=== PATIENT | male | born 1960 | race Caucasian/White ===

== ENCOUNTER → 2020-05-21 | Outpatient (CLI) | payer OTHER ==
[~2020-05-21] MED LIST: ACETAMINOPHEN500 MG PO; ASA81BEC PO; BUPROPION HCL100 MG PO; CELEBREX 200 M200 MG PO; CENTRUM SILVER1 EAC5 PO; FLONASE 0.05%50 MCG NASAL; MELOXICAM7.5 MG PO; NEXIUM40 MG PO; NORCO 5-325 TA1 EACH PO; OXYCODONE HCL5 M1 PO; PREVACID30 MG PO; RESTORIL15 M1 PO; SERTRALINE HCL100 MG PO; VITAMIN B-12500 MC5 PO; VITAMIN D32400 UNIT/ PO; XARELTO10 MG PO
== END ==
LOC: M.LAB
PROVIDERS: ATTEND Orthopaedic Surgery
DX: Z01.812 Encounter for preprocedural laboratory examination (principal); Z20.828 Contact with and (suspected) exposure to other viral communicable diseases; M17.12 Unilateral primary osteoarthritis, left knee

== ENCOUNTER 2020-05-27 09:18 | Observation (INO) | payer OTHER ==
[~2020-05-27] VITALS: Ht 190.5 cm; Wt 131.5 kg
--- NOTE | ~2020-05-27 | OP ---
[address] [address] OPERATIVE REPORT Name: ARNAUD ONEIL Room: [address] Radha#: [id number] Admission: 05/27/20 Attend Phys: Favian Gaytan Discharge: Date of : 60 Report #: [id number] THIS REPORT FOR: //name// cc: James Espinosa MD, Todd MD ~ CC: James Kaplan DICTATED BY: Luis Miguel Rios DO DATE OF SERVICE: 05/27/2020 PREOPERATIVE DIAGNOSIS: Advanced degenerative joint disease, left knee. POSTOPERATIVE DIAGNOSIS: Advanced degenerative joint disease, left knee medial compartment. PROCEDURE PERFORMED: Left medial unicompartmental arthroplasty using the Biomet [place] system with the following components: 1. Large femoral component. 2. Size F tibial tray. 3. A 3 mm ArCom polyethylene. 4. One bag Biomet bone cement. SURGEON: Rosales Ordaz DO SECOND ASSISTANTS: Nae Hollis PA-C; Luis Miguel Rios DO, Tawana Ordaz DO. ANESTHESIA TYPE: General with a peripheral nerve block by Anesthesia. ESTIMATED BLOOD LOSS: 75 mL. SPECIMENS: None. COMPLICATIONS: None. DISPOSITION: Stable to PACU. ANTIBIOTICS: 3 gm IV Ancef preoperatively. TOURNIQUET: 67 minutes at 300 mmHg. INDICATIONS: The patient is a 60-year-old male who we have been following in clinic for quite some time regarding left knee pain. His pain had progressed and was mainly along the medial compartment. He denied pain on the lateral side. Imaging was consistent with medial knee arthritis. His stress view [facility] [address] [place] [address] OPERATIVE REPORT Name: ARNAUD ONEIL Room: [address]#: [id number] Admission: 05/27/20 Attend Phys: Favian Gaytan Discharge: Date of : 60 Report #: [id number] confirmed maintenance of the joint space on stress imaging. He tried and failed extensive conservative measures. He continues to have pain on a daily basis that is limiting his function. Therefore, I recommend he undergo arthroplasty of the left knee. DESCRIPTION OF PROCEDURE: The patient was seen in the preoperative area. Written consent was obtained. The operative site was marked. He was brought back to the operative suite and placed supine on a well-padded operative table. He was given the benefit of general anesthesia. A well-padded pneumatic tourniquet was applied to the left proximal thigh. The leg was placed in the knee aleman from [employer] All pressure points well padded. A surgical timeout was performed. Correct side, site, procedure were verified. everyone present was in agreement. Procedure began with inflation of tourniquet to 300 mmHg after gravity exsanguination. Midline arthrotomy incision was made just from the superior aspect of the patella down medially to the proximal tibia just medial to the tendon. An incision through skin sharply dissected down to the capsule. A new blade was used to create a medial parapatellar arthrotomy. The patella was brought laterally. Some of the fat pad as well as the anterior horn of the medial menisci was incised to allow visualization of the lateral compartment. The medial compartment was completely devoid of cartilage both the anterior portion of the tibia and the weightbearing surface of the femur. Osteophytic lipping was present. The lateral joint showed a pristine cartilage with no significant defects to the tibia or femur. The lateral meniscus was intact. The ACL was intact and functional. We therefore decided to proceed with the unicompartmental arthroplasty. The osteophytes were removed with a small osteotome and rongeur. With the knee in 90 degrees of flexion, the tibial alignment guide was placed and aligned in all planes. The guide was then pinned into place and the proximal tibial resected in standard fashion with the vertical cut followed by the horizontal cut. The excess bone was removed. The tibia was then checked by placing the size F spacer on the tibia and allowing for 3 spacer block at 100 degrees with a good fit. We then turned our attention to the femur. The drill was used to localize the femoral canal followed by the awl. The intramedullary guide was placed. The cutting guide was utilized in standard fashion and followed by placement of the IM link. This was held in the appropriate position along the middle third of the medial femoral condyle and the 2-step drill holes were made into the femur. These were in the appropriate position. The drill guide was removed. We then placed our posterior condylar cutting guide in position, impacted firmly into place. The posterior condyle was resected and the bone was removed. The zero spigot was placed in the femoral drill hole and then drilled to the zero position. Trial reduction was performed with the femoral component and the tibial tray and a size 4 spacer at 100-110 degrees fit well. In 10-20 degrees of flexion, the size 1 spacer fit well. Therefore, a size 3 spigot was obtained and the femur was reamed once again. The femur was thoroughly cleansed of any bony remnants and the remaining small bone around the drill hole was removed. A trial reduction was again performed, gave excellent fit at both 10 and 20 degrees with a size 3 [place] [address] OPERATIVE REPORT Name: ARNAUD ONEIL Room: [address]#: [id number] Admission: 05/27/20 Attend Phys: Favian Gaytan Discharge: Date of : 60 Report #: [id number] Therefore, the final cuts were done. The trial implants were removed. The anti-impingement guide was placed on the femur and the anterior femoral condyle was reamed to remove any bone that would cause impingement on extension. The posterior condyle was checked and had no bone present. The guide was then removed. The tibial tray was placed and held in place with a pin. The toothbrush saw was utilized to prepare the tibial keel. Trial reduction was performed with the trial tray as well as the femur. Excellent motion was achieved and great stability with a size 3 spacer. The trial components were removed. The final components were obtained and placed on the back table. Copious irrigation was carried throughout the incision. The drill holes were made into the tibia and femur with a cement drill. One bag of Biomet bone cement was mixed on the back table. The knee was thoroughly dried and cement placed on the tibia. A small spatula was utilized to pressure the cement into the interstices of the bone. A small amount of cement was placed on the actual implant. Implant was impacted firmly into place. All excess cement was removed. Cement was then placed on the femur with pressurization with a cement gun. Small amount of cement was also placed on the femoral component, which was impacted firmly into place. Excess cement was removed. The size 3 spacer was trialed, again gave full range of motion with good stability. The final 3 was then inserted. Tourniquet was deflated. Hemostasis was achieved. The capsule was injected with orthopedic cocktail. The knee was brought to 90 degrees of flexion. The capsular tissue was closed with #1 Stratafix in a running fashion. Vancomycin powder was introduced throughout the surgical site. Subcutaneous tissue was closed with a 2-0 Monocryl in simple inverted interrupted fashion. The skin was reapproximated utilizing a running 3-0 Stratafix and reinforced with Dermabond skin glue. Sterile Mepilex was applied. The patient was awoken from anesthesia and transferred to PACU in stable condition. No obvious complications. Needle and sponge counts correct x2. Dr. Ordaz was present for all critical aspects of the case. By: [id number] Ordaz DO /nt
[2020-05-27 10:00] VITALS: BP 138/74
[2020-05-27 16:21] VITALS: BP 146/68
[2020-05-27 20:34] VITALS: BP 136/63
[2020-05-28] VITALS: BP 117/54
[2020-05-28 04:00] VITALS: BP 123/56
[2020-05-28 05:28] LABS: HEMATOCRIT 37.5 % (42.0-52.0); HEMOGLOBIN 13.2 gm/dL (14.0-18.0)
[2020-05-28 07:25] VITALS: BP 132/61
[2020-05-28] MEDS ORDERED: TRAMADOL 50 MG50 MG PO (09:47)
[2020-05-28] MEDS ORDERED: HYDROCODON-ACE1 EAC7 PO (09:47)
[2020-05-28] MEDS ORDERED: ELIQUIS5 MG PO (09:47)
[2020-05-28 10:00] VITALS: BP 132/61
[2020-05-28 11:21] VITALS: BP 132/61
== END 2020-05-28 12:13 | disposition home or self-care (01) ==
LOC: M.PRE → M.TBA 09:18 → M.3W 09:18 → M.TBA 09:18 → M.PRE 09:29 → M.3W 16:15
PROVIDERS: Orthopaedic Surgery; ADMIT Internal Medicine; ATTEND Internal Medicine
DX: M17.12 Unilateral primary osteoarthritis, left knee (principal); K21.9 Gastro-esophageal reflux disease without esophagitis; E66.9 Obesity, unspecified; Z68.36 Body mass index [BMI] 36.0-36.9, adult; M17.11 Unilateral primary osteoarthritis, right knee; Z79.899 Other long term (current) drug therapy

== ENCOUNTER → 2021-03-26 | Outpatient (CLI) | payer OTHER ==
[~2021-03-26] MED LIST changes: +ELIQUIS5 MG PO; +HYDROCODON-ACE1 EAC7 PO; +TRAMADOL 50 MG50 MG PO
== END | disposition home or self-care (01) ==
LOC: M.RAD 08:54
PROVIDERS: ATTEND Orthopaedic Surgery
DX: M25.551 Pain in right hip (principal); G89.29 Other chronic pain; Z98.890 Other specified postprocedural states; Z79.899 Other long term (current) drug therapy; Z79.01 Long term (current) use of anticoagulants